=== PATIENT | female | born 1930 | race Hispanic/Latino ===

== ENCOUNTER → 2017-10-16 | Outpatient (CLI) | payer OTHER, MEDICARE ==
[~2017-10-16] MED LIST: ALEN70TA47 PO; CALC1TAB2 PO; CARV12.580 PO; CARV3.1262 PO; FURO20TA4 PO; GABA300C PO; GABA300S PO; HYDR-4060 PO; INSU100I21 SQ; LATA2.5D2 OP; LINE600T6 PO; MUPI22OI2 TP; POTA-9 PO; PRAV20TA4 PO; RIVA20TA PO; SOLI5 PO
== END | disposition home or self-care (01) ==
LOC: RAH 10-15 09:06
PROVIDERS: ATTEND Internal Medicine
DX: I08.0 Rheumatic disorders of both mitral and aortic valves (principal); I70.0 Atherosclerosis of aorta
CPT/HCPCS: 93306

== ENCOUNTER → 2017-10-27 | Outpatient (CLI) | payer OTHER, MEDICARE | END | disposition home or self-care (01) | LOC: RAH 11:22 | PROVIDERS: ATTEND Internal Medicine | DX: M79.672 Pain in left foot (principal) | CPT/HCPCS: 73630 ==

== ENCOUNTER 2017-11-20 10:50 | Observation (INO) | payer OTHER, MEDICARE ==
[~2017-11-20] VITALS: Ht 160 cm; Wt 67.8 kg
[2017-11-20 11:39] LABS: EOSINOPHILS % (AUTO) 1.5 % (0.0-8.0); LYMPHOCYTES % (AUTO) 36.2 % (21.0-51.0); MEAN CORPUSCULAR HEMOGLOBIN 29.7 pg (27.0-33.0); MEAN CORPUSCULAR HGB CONC 34.9 g/dL (32.0-36.0); MEAN CORPUSCULAR VOLUME 84.9 fL (79-99); MONOCYTES % (AUTO) 4.2 % (3.0-13.0); NEUTROPHILS % (AUTO) 57.1 % (40.0-77.0); PLATELET COUNT (AUTO) 58 K/uL (130-400); RED BLOOD CELL COUNT(AUTO) 5.18 MIL/uL (4.00-5.50); RED CELL DISTRIBUTION WIDTH 14.8 % (11.0-15.5); WHITE BLOOD COUNT (AUTO) 4.6 K/uL (4.8-10.8)
[2017-11-20] MEDS ORDERED: VERAPAMIL HCL 2.5 MG/ML VIAL IVP SCH (11:45)
[2017-11-20 12:04] LABS: ALBUMIN 3.4 g/dL (3.5-5.0); BILIRUBIN,TOTAL 1.5 mg/dL (0.2-1.0); CREATINE KINASE MB 1.6 ng/mL (0.5-3.6); CREATININE 0.9 mg/dL (0.5-1.5); TOTAL PROTEIN, SERUM 6.8 g/dL (6.0-8.3)
[2017-11-20 12:06] LABS: INR 1.15 (0.85-1.15); PARTIAL THROMBOPLASTIN TIME 28.6 SEC (26.3-35.5)
[2017-11-20 12:13] LABS: POTASSIUM 2.9 mmol/L (3.5-5.1)
[2017-11-20] MEDS ORDERED: CARVEDILOL 3.125 MG TABLET PO ONE ×2 (13:30→13:32)
[2017-11-20] MEDS ORDERED: SODIUM CHLORIDE 0.9% 1000ML 1,000 ML IV ONE (13:30)
[2017-11-20] MEDS ORDERED: POTASSIUM BICARB/CIT AC 25 MEQ TABLET.EFF ONE (14:07)
[2017-11-20 14:41] VITALS: BP 129/87
[2017-11-20] MEDS ORDERED: POTASSIUM CHLORIDE 10% ELIXIR 20 MEQ/15 ML UDCUP PO PRN (17:30)
[2017-11-20] MEDS ORDERED: POTASSIUM CHLORIDE 20MEQ/100ML 100 ML IV PRN (17:30)
[2017-11-20] MEDS ORDERED: DEXTROSE 50%-WATER 50 ML DISP.SYRIN IV PRN (17:30)
[2017-11-20] MEDS ORDERED: GLUCAGON 1MG KIT 1 MG ML IM PRN (17:30)
[2017-11-20] MEDS ORDERED: LIDOCAINE HCL-MPF 1% 2ML VIAL IVP PRN (17:30)
[2017-11-20] MEDS ORDERED: POTASSIUM CHLORIDE 20 MEQ ERTAB PO PRN (17:30)
[2017-11-20] MEDS ORDERED: INSU100I21 SQ (17:36)
[2017-11-20] MEDS ORDERED: FURO20TA4 PO (17:36)
[2017-11-20] MEDS ORDERED: SOLI5 PO (17:36)
[2017-11-20] MEDS ORDERED: PRAV20TA4 PO (17:36)
[2017-11-20] MEDS ORDERED: RIVA20TA PO (17:36)
[2017-11-20] MEDS ORDERED: GABA300S PO (17:36)
[2017-11-20] MEDS ORDERED: CARV3.1262 PO (17:36)
[2017-11-20] MEDS ORDERED: CEFTRIAXONE 1GM/D5W 50ML 50 ML IV SCH (17:45)
[2017-11-20] MEDS ORDERED: CEFTRIAXONE SODIUM 1 GM IVP SCH (18:30)
[2017-11-20] MEDS ORDERED: SODIUM CHLORIDE 0.9% 500ML 500 ML IV SCH (18:45)
[2017-11-20 19:23] VITALS: BP 117/86
[2017-11-20] MEDS ORDERED: ALEN70TA47 PO (19:29)
[2017-11-20] MEDS ORDERED: GABA300C PO ×2 (19:29)
[2017-11-20] MEDS ORDERED: CALC1TAB2 PO (19:29)
[2017-11-20] MEDS ORDERED: LINE600T6 PO (19:29)
[2017-11-20] MEDS ORDERED: LATA2.5D2 OP (19:29)
[2017-11-20] MEDS ORDERED: HYDR-4060 PO (19:29)
[2017-11-20] MEDS ORDERED: GABAPENTIN 300 MG CAPSULE PO PRN ×2 (20:00)
[2017-11-20] MEDS ORDERED: DIGOXIN 250 MCG/ML 2ML AMP IV ONE (20:00)
[2017-11-20] MEDS ORDERED: HYDROCODONE/ACETAMINOPHEN 5/325 MG TAB PO PRN (20:00)
[2017-11-20] MEDS ORDERED: COMPOUND PO MISCELLANEOUS 1 EACH MISC MISC PRN (21:00)
[2017-11-20] MEDS ORDERED: LATANOPROST 2.5 ML DROPS OP SCH (21:00)
[2017-11-20] MEDS ORDERED: GABAPENTIN 300 MG CAPSULE PO SCH (21:00)
[2017-11-20] MEDS ORDERED: CARVEDILOL 6.25 MG TABLET PO SCH (21:00)
[2017-11-20] MEDS: POTASSIUM CHLORIDE 20 MEQ ERTAB PO SCH (21:01)
[2017-11-20] MEDS: INSULIN HUMULIN R 100 UNIT/ML 3ML SQ SCH (21:20)
[2017-11-20] MEDS: MAG HYDROX/AL HYDROX/SIMETH 30 ML, LIDOCAINE HCL 2% VISCOUS 30 ML, DIPHENHYDRAMINE HCL ... PO SCH ×3 (21:20)
[2017-11-20 23:29] VITALS: BP 132/91
[2017-11-21 03:48] VITALS: BP 140/98
[2017-11-21 04:45] LABS: HEMATOCRIT 38.2 % (36-48); MEAN CORPUSCULAR HEMOGLOBIN 30.1 pg (27.0-33.0); MEAN CORPUSCULAR HGB CONC 35.4 g/dL (32.0-36.0); MEAN CORPUSCULAR VOLUME 85.1 fL (79-99); NUCLEATED RED BLOOD CELLS 0.1 % (0.0-0.19); PLATELET COUNT (AUTO) 51 K/uL (130-400); RED BLOOD CELL COUNT(AUTO) 4.49 MIL/uL (4.00-5.50); RED CELL DISTRIBUTION WIDTH 14.7 % (11.0-15.5); WHITE BLOOD COUNT (AUTO) 3.7 K/uL (4.8-10.8)
[2017-11-21 04:57] LABS: CREATININE 0.9 mg/dL (0.5-1.5); POTASSIUM 3.8 mmol/L (3.5-5.1)
[2017-11-21] MEDS: INSULIN HUMULIN R 100 UNIT/ML 3ML SQ SCH ×2 (05:56→11:30)
[2017-11-21] MEDS ORDERED: CARVEDILOL 12.5 MG TABLET PO SCH ×2 (07:30→09:00)
[2017-11-21 07:36] VITALS: BP 114/76
[2017-11-21] MEDS ORDERED: CARV12.580 PO (07:37)
[2017-11-21] MEDS ORDERED: MUPI22OI2 TP (07:39)
[2017-11-21] MEDS ORDERED: RIVAROXABAN 20 MG TABLET PO SCH (09:00)
[2017-11-21] MEDS ORDERED: MUPIROCIN OINTMENT 22 GM TUBE TP SCH (09:00)
[2017-11-21] MEDS: POTASSIUM CHLORIDE 20 MEQ ERTAB PO SCH (09:00)
[2017-11-21] MEDS: MAG HYDROX/AL HYDROX/SIMETH 30 ML, LIDOCAINE HCL 2% VISCOUS 30 ML, DIPHENHYDRAMINE HCL ... PO SCH ×3 (09:00)
[2017-11-21] MEDS: PANTOPRAZOLE SODIUM 40 MG TABLET.DR PO SCH ×2 (09:00→09:15)
[2017-11-21] MEDS ORDERED: Pravastatin Sodium 20 MG PO SCH (09:00)
[2017-11-21] MEDS ORDERED: DIGOXIN 250 MCG/ML 2ML AMP IV SCH (11:00)
[2017-11-21] MEDS ORDERED: POTA-9 PO (11:32)
[2017-11-21 11:35] VITALS: BP 117/85
[2017-11-22] MEDS ORDERED: DIGOXIN 125 MCG TABLET PO SCH (09:00)
== END 2017-11-21 13:10 | disposition home or self-care (01) ==
LOC: EDH 10:50 → EDHIP 12:30 → 2AH 14:02
PROVIDERS: ADMIT Internal Medicine; ATTEND Internal Medicine
DX: E86.0 Dehydration (principal); E87.6 Hypokalemia; F03.90 Unspecified dementia, unspecified severity, without behavioral disturbance, psychotic disturbance, mood disturbance, and anxiety; E78.2 Mixed hyperlipidemia; I48.2 Chronic atrial fibrillation; I13.0 Hypertensive heart and chronic kidney disease with heart failure and stage 1 through stage 4 chronic kidney disease, or unspecified chronic kidney disease; E11.22 Type 2 diabetes mellitus with diabetic chronic kidney disease; N18.2 Chronic kidney disease, stage 2 (mild); I50.22 Chronic systolic (congestive) heart failure; E11.40 Type 2 diabetes mellitus with diabetic neuropathy, unspecified; I25.10 Atherosclerotic heart disease of native coronary artery without angina pectoris; J45.909 Unspecified asthma, uncomplicated; M48.02 Spinal stenosis, cervical region; D68.69 Other thrombophilia; Z79.4 Long term (current) use of insulin; Z79.01 Long term (current) use of anticoagulants
CPT/HCPCS: 36415 ×2; 80048; 80053; 82550; 82553; 82948 ×3; 84132; 84484; 85025; 85027; 85610; 85730; 93005; 96372; 96374; 96375; 99285; A4218; G0378 ×25; J0696; J1160; J1815; J3490; J7030

== ENCOUNTER → 2018-07-15 | Outpatient (CLI) | payer OTHER, MEDICARE ==
[~2018-07-15] MED LIST changes: -ALEN70TA47 PO; -CARV3.1262 PO; -GABA300S PO; -LINE600T6 PO; -SOLI5 PO
== END | disposition home or self-care (01) ==
LOC: RAH 12:07
PROVIDERS: ATTEND Internal Medicine
DX: I51.7 Cardiomegaly (principal); R63.4 Abnormal weight loss
CPT/HCPCS: 71046

== ENCOUNTER 2018-10-29 10:39 | Emergency (ER) | payer OTHER, MEDICARE ==
[2018-10-29 11:51] LABS: BASOPHILS % (AUTO) 0.7 % (0.0-5.0); EOSINOPHILS % (AUTO) 2.7 % (0.0-8.0); HEMATOCRIT 44.8 % (36-48); LYMPHOCYTES % (AUTO) 24.1 % (21.0-51.0); MEAN CORPUSCULAR HEMOGLOBIN 31.1 pg (27.0-33.0); MEAN CORPUSCULAR HGB CONC 33.8 g/dL (32.0-36.0); MONOCYTES % (AUTO) 8.6 % (3.0-13.0); NEUTROPHILS % (AUTO) 63.9 % (40.0-77.0); PLATELET COUNT (AUTO) 118 K/uL (130-400); RED BLOOD CELL COUNT(AUTO) 4.87 MIL/uL (4.00-5.50); RED CELL DISTRIBUTION WIDTH 15.5 % (11.0-15.5); WHITE BLOOD COUNT (AUTO) 4.7 K/uL (4.8-10.8)
[2018-10-29 12:03] LABS: ALBUMIN 3.6 g/dL (3.5-5.0); BILIRUBIN,TOTAL 1.1 mg/dL (0.2-1.0); CREATININE 1.4 mg/dL (0.5-1.5); TOTAL PROTEIN, SERUM 7.3 g/dL (6.0-8.3)
[2018-10-29] MEDS ORDERED: POTASSIUM CHLORIDE 10% ELIXIR 20 MEQ/15 ML UDCUP ONE (12:49)
== END 2018-10-29 14:08 | disposition home or self-care (01) ==
LOC: EDH 10:39
DX: G89.29 Other chronic pain (principal); M79.601 Pain in right arm; E87.6 Hypokalemia; E11.9 Type 2 diabetes mellitus without complications; D69.6 Thrombocytopenia, unspecified; I10 Essential (primary) hypertension; I48.91 Unspecified atrial fibrillation; Z79.4 Long term (current) use of insulin; Z87.891 Personal history of nicotine dependence; Z98.890 Other specified postprocedural states
CPT/HCPCS: 36415; 73030; 80053; 85025; 86140

== ENCOUNTER → 2018-12-15 | Outpatient (CLI) | payer OTHER, MEDICARE | END | disposition home or self-care (01) | LOC: RAH 11:14 | PROVIDERS: ATTEND Internal Medicine | DX: S69.81XA Other specified injuries of right wrist, hand and finger(s), initial encounter (principal); M19.041 Primary osteoarthritis, right hand; M85.831 Other specified disorders of bone density and structure, right forearm; M85.841 Other specified disorders of bone density and structure, right hand; X58.XXXA Exposure to other specified factors, initial encounter; Y93.89 Activity, other specified; Y92.89 Other specified places as the place of occurrence of the external cause; Y99.8 Other external cause status | CPT/HCPCS: 73090; 73130 ==

== ENCOUNTER 2019-04-01 08:34 | Emergency (ER) | payer OTHER, MEDICARE ==
[2019-04-01] MEDS ORDERED: ONDANSETRON HCL 4 MG/2 ML VIAL ONE (08:52)
[2019-04-01] MEDS ORDERED: MORPHINE SULFATE 4 MG/1ML SYG ONE (08:53)
[2019-04-01] MEDS ORDERED: SODIUM CHLORIDE 0.9% 500ML 500 ML IV ONE (08:53)
[2019-04-01 09:30] LABS: BASOPHILS % (AUTO) 0.4 % (0.0-5.0); EOSINOPHILS % (AUTO) 1.2 % (0.0-8.0); HEMATOCRIT 44.3 % (36-48); LYMPHOCYTES % (AUTO) 16.1 % (21.0-51.0); MEAN CORPUSCULAR HEMOGLOBIN 31.8 pg (27.0-33.0); MEAN CORPUSCULAR HGB CONC 34.6 g/dL (32.0-36.0); MEAN CORPUSCULAR VOLUME 91.8 fL (79-99); MONOCYTES % (AUTO) 6.3 % (3.0-13.0); PLATELET COUNT (AUTO) 89 K/uL (130-400); RED BLOOD CELL COUNT(AUTO) 4.83 MIL/uL (4.00-5.50); RED CELL DISTRIBUTION WIDTH 15.3 % (11.0-15.5); WHITE BLOOD COUNT (AUTO) 6.7 K/uL (4.8-10.8)
[2019-04-01 09:36] LABS: CREATININE 1.3 mg/dL (0.5-1.5); POTASSIUM 3.2 mmol/L (3.5-5.1)
[2019-04-01 09:41] LABS: ALBUMIN 3.9 g/dL (3.5-5.0); TOTAL PROTEIN, SERUM 7.4 g/dL (6.0-8.3)
[2019-04-01] MEDS ORDERED: POTASSIUM BICARB/CIT AC 25 MEQ TABLET.EFF PO SCH (11:22)
[2019-04-01] MEDS ORDERED: POTASSIUM CHLORIDE 10% ELIXIR 20 MEQ/15 ML UDCUP ONE (12:03)
== END 2019-04-01 12:22 | disposition home or self-care (01) ==
LOC: EDH 08:34
DX: S42.002A Fracture of unspecified part of left clavicle, initial encounter for closed fracture (principal); S00.03XA Contusion of scalp, initial encounter; E87.6 Hypokalemia; W01.0XXA Fall on same level from slipping, tripping and stumbling without subsequent striking against object, initial encounter; Y93.89 Activity, other specified; Y92.89 Other specified places as the place of occurrence of the external cause; Y99.8 Other external cause status
CPT/HCPCS: 36415; 70450; 71045; 72125; 72170; 73000; 80053; 84484; 85025; 93005; 96374; 96375; 99285; J2270; J2405; J7040

== ENCOUNTER → 2020-02-11 | Outpatient (CLI) | payer OTHER, MEDICARE | END | disposition home or self-care (01) | LOC: RAH 08:57 | PROVIDERS: ATTEND Internal Medicine | DX: K80.20 Calculus of gallbladder without cholecystitis without obstruction (principal); N28.1 Cyst of kidney, acquired; I51.7 Cardiomegaly; J98.11 Atelectasis; I70.90 Unspecified atherosclerosis; M47.819 Spondylosis without myelopathy or radiculopathy, site unspecified; Z90.710 Acquired absence of both cervix and uterus | CPT/HCPCS: 74176 ==

== ENCOUNTER → 2020-03-01 | Outpatient (CLI) | payer OTHER, MEDICARE | END | disposition home or self-care (01) | LOC: RAH 11:38 | PROVIDERS: ATTEND Internal Medicine | DX: G31.1 Senile degeneration of brain, not elsewhere classified (principal); I67.82 Cerebral ischemia; R44.3 Hallucinations, unspecified | CPT/HCPCS: 70450 ==

== ENCOUNTER 2020-08-01 09:14 | Observation (INO) | payer OTHER, MEDICARE ==
[~2020-08-01 09:14] MED LIST changes: +LATA2.5D14 OP; -LATA2.5D2 OP; +POTA-10 PO; -POTA-9 PO
[2020-08-01 09:36] LABS: BASOPHILS % (AUTO) 0.5 % (0.0-5.0); EOSINOPHILS % (AUTO) 2.7 % (0.0-8.0); HEMATOCRIT 41.3 % (36-48); LYMPHOCYTES % (AUTO) 21.7 % (21.0-51.0); MEAN CORPUSCULAR HEMOGLOBIN 30.9 pg (27.0-33.0); MEAN CORPUSCULAR HGB CONC 34.4 g/dL (32.0-36.0); MEAN CORPUSCULAR VOLUME 89.8 fL (79-99); MONOCYTES % (AUTO) 7.8 % (3.0-13.0); NEUTROPHILS % (AUTO) 66.8 % (40.0-77.0); PLATELET COUNT (AUTO) 120 K/uL (130-400); RED CELL DISTRIBUTION WIDTH 13.8 % (11.0-15.5); WHITE BLOOD COUNT (AUTO) 4.1 K/uL (4.8-10.8)
[2020-08-01 09:43] LABS: CREATININE 1.5 mg/dL (0.5-1.5); POTASSIUM 3.5 mmol/L (3.5-5.1)
[2020-08-01 09:48] LABS: ALBUMIN 3.9 g/dL (3.5-5.0); TOTAL PROTEIN, SERUM 7.7 g/dL (6.0-8.3)
[2020-08-01 11:38] LABS: INR 1.89 (0.85-1.15); PROTHROMBIN TIME 19.4 SEC (9.6-11.6)
[2020-08-01 11:39] LABS: PARTIAL THROMBOPLASTIN TIME 39.2 SEC (26.3-35.5)
[2020-08-01] MEDS ORDERED: FURO40TA5 PO (11:46)
[2020-08-01] MEDS ORDERED: GABA300C PO ×2 (11:46→11:51)
[2020-08-01] MEDS ORDERED: PRAV10TA39 PO (11:46)
[2020-08-01] MEDS ORDERED: CARV12.580 PO (11:46)
[2020-08-01] MEDS ORDERED: SITA25TA5 PO (11:50)
[2020-08-01] MEDS ORDERED: DILT30TA3 PO (11:50)
[2020-08-01] MEDS ORDERED: ALEN70TA80 PO (11:50)
[2020-08-01] MEDS ORDERED: LORA10TA7 PO (11:50)
[2020-08-01] MEDS ORDERED: DIFL5DRO OS (11:53)
[2020-08-01] MEDS ORDERED: BRIM5DRO OP (11:53)
[2020-08-01] MEDS ORDERED: 0.9%NACL 50ML 50 ML IV ONE (12:00)
[2020-08-01] MEDS ORDERED: CEFTRIAXONE 1G VIAL ONE (12:00)
[2020-08-01] MEDS ORDERED: 0.9%NACL 1000ML 1,000 ML IV SCH (12:30)
[2020-08-01 12:47] LABS: APPEARANCE,URINE Clear (CLEAR); BILIRUBIN,URINE Negative (NEGATIVE); COLOR,URINE Yellow (YELLOW); GLUCOSE, URINE (UA) Negative (NEGATIVE); KETONES,URINE Negative (NEGATIVE); LEUKOCYTE ESTERASE ,URINE Negative (NEGATIVE); NITRATE,URINE Negative (NEGATIVE); OCCULT BLOOD,URINE Negative (NEGATIVE); PH,URINE 7.5 (5.0-8.0); PROTEIN,URINE Negative (NEGATIVE); UROBILINOGEN,URINE 0.2 mg/dL (0.2-1.0)
[2020-08-01] MEDS ORDERED: POTASSIUM CHLORIDE 20MEQ/100ML 100 ML IV PRN (13:45)
[2020-08-01] MEDS ORDERED: ONDANSETRON 4MG INJ IV PRN (13:45)
[2020-08-01] MEDS ORDERED: POTASSIUM CHLORIDE 10% ELIXIR 20 MEQ/15 ML UDCUP PO PRN (13:45)
[2020-08-01] MEDS ORDERED: LIDOCAINE HCL-MPF 1% 2ML VIAL IV PRN (13:45)
[2020-08-01] MEDS ORDERED: GABAPENTIN 300 MG CAPSULE PO PRN (13:45)
[2020-08-01] MEDS ORDERED: DiphenhydrAMINE HCL 50 MG/ML VIAL IV PRN (13:45)
[2020-08-01] MEDS ORDERED: LACTULOSE 20 GM/30 ML UDCUP PO PRN (13:45)
[2020-08-01] MEDS ORDERED: DIPHENHYDRAMINE HCL 25 MG CAPSULE PO PRN (13:45)
[2020-08-01] MEDS ORDERED: ACETAMINOPHEN 325 MG TAB PO PRN ×2 (13:45)
[2020-08-01] MEDS ORDERED: METOPROLOL TARTRATE 1 MG/ML 5ML VIAL IV PRN (13:45)
[2020-08-01] MEDS ORDERED: KCL 20 MEQ ERTAB PO PRN (13:45)
[2020-08-01] MEDS ORDERED: MAG/ALUM/SIMETH 30 ML UDCUP PO PRN (13:45)
[2020-08-01] MEDS ORDERED: DILTIAZEM 60MG TAB PO SCH (14:00)
[2020-08-01] MEDS ORDERED: HALOPERIDOL INJ 5 MG/ML VIAL ONE ×2 (14:49→21:37)
[2020-08-01] MEDS ORDERED: LORAZEPAM 2 MG/ML 1 ML VIAL ONE (15:45)
[2020-08-01] MEDS ORDERED: ATORVASTATIN 10 MG TABLET PO SCH (17:00)
[2020-08-01] MEDS ORDERED: DUREZOL EYE OS SCH (17:00)
[2020-08-01] MEDS ORDERED: CARVEDILOL 12.5 MG TABLET PO SCH (21:00)
[2020-08-02] MEDS ORDERED: 0.9%NACL 1000ML 1,000 ML IV ONE (06:29)
[2020-08-02 07:38] LABS: HEMATOCRIT 42.8 % (36-48); MEAN CORPUSCULAR HEMOGLOBIN 30.9 pg (27.0-33.0); MEAN CORPUSCULAR HGB CONC 33.9 g/dL (32.0-36.0); MEAN CORPUSCULAR VOLUME 91.1 fL (79-99); RED BLOOD CELL COUNT(AUTO) 4.7 MIL/uL (4.00-5.50); WHITE BLOOD COUNT (AUTO) 5.9 K/uL (4.8-10.8)
[2020-08-02 07:56] LABS: CREATININE 1.1 mg/dL (0.5-1.5)
[2020-08-02 07:59] LABS: POTASSIUM 2.8 mmol/L (3.5-5.1)
[2020-08-02] MEDS ORDERED: DILTIAZEM 60MG TAB ONE (08:00)
[2020-08-02] MEDS ORDERED: CARVEDILOL 12.5 MG TABLET PO ONE (08:01)
[2020-08-02] MEDS ORDERED: METOPROLOL TARTRATE 1 MG/ML 5ML VIAL IV ONE (08:01)
[2020-08-02] MEDS ORDERED: CARVEDILOL 6.25 MG TABLET PO ONE (08:02)
[2020-08-02] MEDS ORDERED: LORATADINE 10 MG TABLET ONE (08:02)
[2020-08-02] MEDS ORDERED: CEFTRIAXONE 1G VIAL ONE (08:38)
[2020-08-02] MEDS ORDERED: LORATADINE 10 MG TABLET PO SCH (09:00)
[2020-08-02] MEDS ORDERED: RIVAROXABAN 20 MG TABLET PO SCH (09:00)
[2020-08-02] MEDS ORDERED: POTASSIUM CHLORIDE 10MEQ SR TAB PO SCH (09:00)
[2020-08-02] MEDS ORDERED: CEFTRIAXONE 1G VIAL IVP SCH (09:00)
[2020-08-02] MEDS ORDERED: LINAGLIPTIN 5 MG TABLET PO SCH (09:00)
[2020-08-02] MEDS ORDERED: FURO40TA5 PO (16:14)
== END 2020-08-02 19:10 ==
LOC: EDH 09:14 → EDHIP 11:40
PROVIDERS: ADMIT Internal Medicine; ATTEND Internal Medicine
DX: R41.82 Altered mental status, unspecified (principal); E86.0 Dehydration; I48.21 Permanent atrial fibrillation; I13.0 Hypertensive heart and chronic kidney disease with heart failure and stage 1 through stage 4 chronic kidney disease, or unspecified chronic kidney disease; E11.22 Type 2 diabetes mellitus with diabetic chronic kidney disease; N18.30 Chronic kidney disease, stage 3 unspecified; I50.42 Chronic combined systolic (congestive) and diastolic (congestive) heart failure; M19.90 Unspecified osteoarthritis, unspecified site; E11.40 Type 2 diabetes mellitus with diabetic neuropathy, unspecified; M81.0 Age-related osteoporosis without current pathological fracture; E78.2 Mixed hyperlipidemia; M48.02 Spinal stenosis, cervical region; M48.062 Spinal stenosis, lumbar region with neurogenic claudication; M51.86 Other intervertebral disc disorders, lumbar region; I25.10 Atherosclerotic heart disease of native coronary artery without angina pectoris; F03.91 Unspecified dementia, unspecified severity, with behavioral disturbance; N39.3 Stress incontinence (female) (male); D68.69 Other thrombophilia; I25.5 Ischemic cardiomyopathy; D69.6 Thrombocytopenia, unspecified; G31.9 Degenerative disease of nervous system, unspecified; I77.819 Aortic ectasia, unspecified site; Z87.81 Personal history of (healed) traumatic fracture; Z79.01 Long term (current) use of anticoagulants; Z79.4 Long term (current) use of insulin; Z79.899 Other long term (current) drug therapy
CPT/HCPCS: 36415 ×2; 70450; 71045; 80048; 80053; 81003; 82550; 84484; 85025; 85027; 85610; 85730; 87040 ×2; 93005; 97039 ×2; 97161; 99285; G0378 ×29; G8978; G8979; G8980; G8981; G8982; G8983; J0696 ×2; J1630 ×2; J2060; J3490; J7030